=== PATIENT | female | born 1990 | race Caucasian/White ===

== ENCOUNTER 2016-12-31 20:45 | Emergency (ER) | payer SELFPAY ==
[~2016-12-31] VITALS: Ht 162.6 cm; Wt 52.6 kg
[2016-12-31 20:51] VITALS: TEMP 36.8; Ht 162.6 cm; Wt 52.6 kg
[2016-12-31] MEDS ORDERED: MULT-506 PO (21:34)
[2016-12-31] MEDS ORDERED: MULT-1018 PO (21:34)
[2016-12-31] MEDS ORDERED: OPTIRAY 320 IV PRN (21:45)
--- NOTE | 2016-12-31 22:12 | DIAGNOSTIC IMAGING REPORT ---
(CHEST FOR PE) ANGIO WITH CT DOSE: 187.31 mGy.cm HISTORY: 26 years-old Female presents with acute left-sided rib pain and elevated D dimer level. TECHNIQUE: Multiple CTA images of the chest were obtained after the intravenous administration of 111 ml Optiray 320. Coronal and sagittal MIPS were obtained from the axial data set and were submitted for review. A dose lowering technique was utilized adhering to the principles of ALARA. COMPARISON: None. FINDINGS: CTA: There is adequate opacification of the pulmonary arteries to the level of the subsegmental branches without convincing evidence of acute pulmonary embolism. Thoracic aorta is normal in both course and caliber without aneurysm or dissection. The left vertebral artery emanates directly from the aortic arch. The common hepatic artery emanates directly from the aortic arch as well. Heart size is normal. CT CHEST: No dominant thyroid nodule is seen. No pathologically adenopathy by CT size criteria. There is no pneumothorax, pleural effusion or focal airspace consolidation. The imaged upper abdominal structures are normal. The osseous structures appear intact. IMPRESSION: No acute intrathoracic abnormality identified, specifically no acute aortic pathology or evidence of pulmonary thromboembolic disease. The above report was generated using voice recognition software. It may contain grammatical, syntax or spelling errors. Electronically signed by: Osman Ding M.D. 12/31/2016 10:10 PM Dictated Date/Time: 12/31/2016 10:05 PM
--- NOTE | 2016-12-31 23:00 | EMERGENCY ROOM VISIT NOTE ---
History First contact with patient: 20:54 Chief Complaint: ABNORMAL LABS Stated Complaint: ABNORMAL D-DIMER LABS History of Present Illness The patient is a 26 year old female who presents to the Emergency Room with complaints of an elevated d-dimer. The patient reports that she has had pain in her left-sided chest down to her hip. She reports that she has an enlarged lymph node in the left side of her groin. She has had chest pain which increases with deep breath as well as difficulty taking a full breath. The patient was seen at a walk-in clinic today and had a d-dimer were performed which was elevated. She was sent here for CT scan of the chest. She does not smoke or use illicit drugs. She denies control pill use. She denies any recent long travel. Review of Systems A complete 10 point review of systems was reviewed with the patient with pertinent positives and negatives as per history of present illness. All else were negative. Social History Smoking Status: Never Smoker Current/Historical Medications Scheduled Multiple Vitamins W/ Minerals (Hair Skin and Nails Formu), 1 TAB PO TID Multivitamin (Multivitamin), 1 TAB PO DAILY Physical Exam Vital Signs Date Time Temp Pulse Resp B/P (MAP) Pulse Ox O2 Delivery O2 Flow Rate FiO2 12/31/16 23:13 61 18 103/66 99 12/31/16 22:03 70 18 102/64 99 Room Air 12/31/16 21:31 58 12/31/16 20:51 36.8 65 18 112/69 98 Room Air Physical Exam VITALS: Vitals are noted on the nurse's note and reviewed by myself. Vital signs stable. GENERAL: This is a 26-year-old female, in no acute distress, nondiaphoretic, well-developed well-nourished. EARS: External auditory canals clear, tympanic membranes pearly varela without erythema or effusion bilaterally. EYES: Pupils equal round and reactive to light and accommodation. MOUTH: Mucous membranes moist. Tonsils are not enlarged. Pharynx without erythema or exudate. NECK: Supple without nuchal rigidity. No lymphadenopathy. HEART: Regular rate and rhythm without murmurs gallops or rubs. LUNGS: Clear to auscultation bilaterally without wheezes, rales or rhonchi. No retractions or accessory muscle use. ABDOMEN: Positive bowel sounds x 4. Soft, nontender to palpation. There is a tender, swollen left inguinal lymph node. NEURO: Patient was alert and oriented to person place and time. Medical Decision & Procedures ER Provider Diagnostic Interpretation: (CHEST FOR PE) ANGIO WITH CT DOSE: 187.31 mGy.cm HISTORY: 26 years-old Female presents with acute left-sided rib pain and elevated D dimer level. TECHNIQUE: Multiple CTA images of the chest were obtained after the intravenous administration of 111 ml Optiray 320. Coronal and sagittal MIPS were obtained from the axial data set and were submitted for review. A dose lowering technique was utilized adhering to the principles of ALARA. COMPARISON: None. FINDINGS: CTA: There is adequate opacification of the pulmonary arteries to the level of the subsegmental branches without convincing evidence of acute pulmonary embolism. Thoracic aorta is normal in both course and caliber without aneurysm or dissection. The left vertebral artery emanates directly from the aortic arch. The common hepatic artery emanates directly from the aortic arch as well. Heart size is normal. CT CHEST: No dominant thyroid nodule is seen. No pathologically adenopathy by CT size criteria. There is no pneumothorax, pleural effusion or focal airspace consolidation. The imaged upper abdominal structures are normal. The osseous structures appear intact. IMPRESSION: No acute intrathoracic abnormality identified, specifically no acute aortic pathology or evidence of pulmonary thromboembolic disease. Laboratory Results Test 12/31/16 21:22 Troponin I < 0.015 ng/ml (0-0.045) ECG Rate (beats per minute): 52 Rhythm: sinus bradycardia Findings: no acute ischemic change, no ectopy Comparison ECG Date: no prior available Medical Decision Differential diagnosis includes pulmonary embolism, pneumonia, viral illness, among others. The patient is a 26-year-old female who presents today complaining of and elevated d-dimer. Patient had labs performed at outpatient which were unremarkable except for an elevated d-dimer. CT of the chest was performed and showed no evidence of PE or other intrathoracic abnormalities. Her symptoms may be secondary to a viral illness. Her vital signs are within normal limits and she was encouraged to follow-up with her primary care provider for further evaluation of these symptoms. She was encouraged to take anti-inflammatories for pain. Based on the patient's presentation and work up, I feel the patient is stable for outpatient treatment. The patient was educated to return to the emergency department for any worsening of their current condition or new/concerning symptoms. She will follow up with her PCP. Medication Reconcilliation Current Medication List: was personally reviewed by me Blood Pressure Screening Patient's blood pressure: Normal blood pressure Impression Primary Impression: Rib pain Departure Information Dispostion Home / Self-Care Condition GOOD Referrals No Doctor, Assigned (PCP) Patient Instructions My [facility] [place] Additional Instructions For pain control, you can use the following [id number] medicines (if >12 yo): - Regular strength (325mg/tab) Tylenol (acetaminophen) 2 tabs every 4-6 hours as needed. Do not exceed 12 tablets in a 24 hour period. Avoid taking more than 4 grams (4000 mg) of Tylenol per day. This includes any other sources of acetaminophen you may take on a regular basis. - Regular strength (200 mg/tab) Advil (ibuprofen) 3 tabs every 4-6 hours as needed. Do not exceed a dose of 3200 mg per day. Rest and drink plenty of fluids. Follow-up with your primary care provider in 2-3 days for a recheck and further evaluation. Return to the emergency department with any worsening or your current condition or new/concerning symptoms.
[2016-12-31 23:13] VITALS: BP 103/66; PULSE 61; O2SAT 99
== END 2016-12-31 23:13 | disposition home or self-care (01) ==
LOC: C.EDB 20:48 → C.EDC 23:13
DX: R79.1 Abnormal coagulation profile (principal); R00.1 Bradycardia, unspecified; R07.9 Chest pain, unspecified